=== PATIENT | male | born 1950 | race Caucasian/White ===

== ENCOUNTER 2023-04-28 09:43 | Outpatient (AMB) | payer OTHER, SELFPAY ==
--- NOTE | 2023-04-28 10:42 | A.OFFVIS_ITS ---
Intake Intake Visit Reasons: BPH w lower urinary tract symp/Incontinence Intake Note: New Patient presents for initial visit for BPH/Incontinence Urology Medications: none Blood Thinner: none PVR: 67ml's [facility] Director Required: No Accompanied by: Self / Same As Patient Allergies acetaminophen [Tylenol] Allergy (Unknown, Verified 04/28/23 11:28) Unknown No Known Allergies [No Known Allergies*] Allergy (Unverified 04/28/23 11:28) Hydrocodone-Acetaminophen Allergy (Unknown, Uncoded 04/28/23 11:28) Unknown Medication List - Last Reconciled 04/28/23 [facility] albuterol sulfate 90 mcg/actuation 2 puffs inhalation Q4-6H PRN atorvastatin 80 mg PO DAILY chlorhexidine gluconate 0.12% 15 mL buccal BID clonazepam 1 mg PO BID PRN empagliflozin 25 mg PO DAILY fluoride (sodium) 1.1% 1 appl dental DAILY multivitamin 1 tab PO DAILY omeprazole 20 mg PO DAILY sildenafil 50 mg PO DAILY PRN tadalafil (Cialis) 5 mg PO DAILY 90 days HPI HPI Comments History of Present Illness Details Josh is a very pleasant 72-year-old male patient of Dr. Jeffers. He has a PMH of PTSD, osteoarthritis, obstructive sleep apnea, obesity, hypertension, hyperlipidemia, GERD, drug-induced constipation, alcohol dependence in remission, and impotence. He presents to the office today as a new patient for urinary dribbling, nocturia, and urinary frequency. In discussion with the patient today he reports to be doing and feeling well. He discusses noting lower urinary tract symptoms have st asked he denies arted since starting his diabetic medication. He reports nocturia 2-4 times per night. However, when asked he denies incontinence, hematuria, dysuria, foul smelling urine, changes to urinary stream, flank pain, fever, and or chills. Discussed at length pelvic floor therapy to assist with urinary dribbling. Discussed lifestyle modifications with avoiding liquids 2-4 hours prior to bed as well as bladder triggers/irritants. Discusses importance of compliance with CPAP machine for improvement in lower urinary tract symptoms as well as overall health and well being. Discussed obtaining retroperitoneal ultrasound and PSA for further assessment evaluation. Patient otherwise denies any bothersome issues or concerns at this time. [facility] Medical History Varicocele Other unknown and unspecified cause of morbidity or mortality Post-traumatic stress disorder, unspecified Pedophilia Other acute postprocedural pain Osteoarthritis of knee, unspecified Obstructive sleep apnea (adult) (pediatric) Osteoarthritis of knee Morbid obesity Impotence of organic origin Hypertension Hyperlipidemia, unspecified Gastro-esophageal reflux disease without esophagitis Family history of other specified malignant neoplasm Essential (primary) hypertension Drug induced constipation Type 2 diabetes mellitus Chronic rhinitis BPH w urinary obs/LUTS Other and unspecified alcohol dependence, in remission Review of Systems Eyes Reports no additional complaints ENT Reports no additional complaints Card Reports as per [facility] Resp Reports as per [facility] GI Reports as per [facility] Reports as per [facility] Musc Reports as per [facility] Neuro Reports no additional complaints Psych Reports as per [facility] Endo Reports as per [facility] Jan/Lymph Reports no additional complaints Aller/Immun Reports no additional complaints Physical Exam Const General: cooperative, healthy appearing, comfortable, no acute distress, well developed, alert and awake Nutritional Appearance: overweight Orientation/consciousness: patient oriented x3 Limitations: no limitations HEENT Head: Yes normal to inspection, Yes normocephalic and Yes atraumatic Ears: hearing grossly normal bilaterally Eyes General: appearance normal, both eyes and all related structures Neck Neck: Yes normal visual inspection and Yes trachea midline Chest Chest palpation & inspection: normal inspection of the chest Resp Effort & Inspection: normal respiratory effort and able to speak in complete sentences Cardio Rate: regular rate GI Inspection: Yes normal to inspection General: Yes no CVA tenderness Back/Spine/Pelvis Back: no CVA tenderness Skin General skin exam: no rashes or lesions noted Neuro General: patient oriented x3 Extrem General: Yes normal to inspection Psych Appearance: grossly normal and well kempt Mental Status: mental status grossly normal Speech and movement: Normal speech and movement present and Clear speech present Affect: normal affect Attitude: cooperative Thought process: Normal thought process present Thought content: Normal thought content present Insight: Fair insight present (Psych) Judgement: Fair judgement present (Psych) Office Procedures Post Void Residual Post Residual Void Post Void Residual (PVR): [id number] Void Residual by ultrasound Results AMB Urinalysis, Automated UA Leukoctes 0 Jameel/uL Last Edit by Servando Biswas on 04/28/23 11:01 UA Nitrite Last Edit by Servando Biswas on 04/28/23 11:01 UA Urobilinogen 0.2 mg/dL Last Edit by Servando Castroguille on 04/28/23 11:01 UA Protein 0 mg/dL Last Edit by Servando Castroguille on 04/28/23 11:01 UA pH 6.0 Last Edit by Servando Castroguille on 04/28/23 11:01 UA Blood 0 Jakob/uL Last Edit by Servando Castroguille on 04/28/23 11:01 UA Specific [place] 1.015 Last Edit by Servando Castroguille on 04/28/23 11:01 UA Ketone Negative Last Edit by Servando Castroguille on 04/28/23 11:01 UA Bilirubin 0 mg/dL Last Edit by Servando Castroguille on 04/28/23 11:01 UA Glucose 1000 mg/dL Last Edit by Servando Castroguille on 04/28/23 11:01 Results Reviewed Results Reviewed: Laboratory Last Values Urine pH (Auto) 6.0 04/28/23 10:45 Specific [place] (Auto) 1.015 04/28/23 10:45 Urine Protein (Auto) 0 mg/dL 04/28/23 10:45 Glucose (UA)(Auto) 1000 mg/dL 04/28/23 10:45 Urine Ketones (Auto) Negative 04/28/23 10:45 Urine Blood (Auto) 0 Jakob/uL 04/28/23 10:45 Urine Bilirubin (Auto) 0 mg/dL 04/28/23 10:45 Urine Urobilinogen (Auto) 0.2 mg/dL 04/28/23 10:45 Leukocyte Esterase (Auto) 0 Jameel/uL 04/28/23 10:45 Assessment & Plan Assessment & Plan (1) Lower urinary tract symptoms: Code(s): R39.9 - Unspecified symptoms and signs involving the genitourinary system (2) Urinary dribbling: Code(s): N39.43 - Post-void dribbling (3) Urinary frequency: Code(s): R35.0 - Frequency of micturition (4) Nocturia: Code(s): R35.1 - Nocturia Plan In office urinalysis results reviewed with the patient today PVR 62 mL Will obtain retroperitoneal ultrasound for further assessment evaluation Will obtain PSA for further assessment and evaluation Discussed at length importance of managing diabetes for improvement in lower urinary tract symptoms as well as overall health an well being. Discussed limiting fluids 2-4 hours prior to bed to assist with decreasing episodes of nocturia Discussed pelvic floor exercises for men to assist with urinary dribbling. Discussed bladder triggers/irritants. Start 5mg Cialis daily as discussed and prescribed. Follow-up in 6-8 weeks with imaging and labs to be completed prior; or sooner with any issues, concerns, and or questions. Orders: Orders AMB Urinalysis Automated Today Z13.9 - Encounter for screening, unspecified AMB Post Void Residual by ultrasound Today Z13.9 - Encounter for screening, unspecified PSA,Total (Free>4and<10) Today E11.69 - Type 2 diabetes mellitus with other specified complication, N52.1 - Erectile dysfunction due to diseases classified elsewhere US retroperitoneal comp Today N39.43 - Post-void dribbling, R35.0 - Frequency of micturition, R35.1 - Nocturia, R39.9 - Unspecified symptoms and signs involving the genitourinary system Medications: New tadalafil (Cialis) [facility] [id number] [facility] Group DR33 5 mg PO DAILY 90 tabs 0RF 90 days Patient Instructions: The patient had an opportunity to ask questions regarding the treatment plan. All questions were answered. Physical exam, labs, and imaging were discussed and reviewed in detail. As well as risks, benefits, and discussion of treatment c hoices. No major barriers to understanding were identified. The patient expressed understanding and agreement with the above treatment plan. The patient was made aware they should contact our office by phone for worsening of their current condition, the appearance of new symptoms, or with any questions or concerns. Compliance is encouraged with any medications and follow up testing that is ordered. It is a privilege to be allowed the opportunity to participate in? your urological care.? Again, if you have any questions or concerns If you have any questions or concerns please do not hesitate to contact me. The office is [phone]. This note is constructed using voice recognition software. While every effort has been made to ensure accuracy copy reader errors may have been included. Yours sincerely, AL Maxwell Coding Level of Care Code New Pt Level 4 (33280) Diagnoses Lower urinary tract symptoms R39.9 Urinary dribbling N39.43 Urinary frequency R35.0 Nocturia R35.1 CPT Codes Post Residual Void - PVR CPT Code: 46541-[id number] Void Residual by ultrasound ([id number])
== END 2023-04-28 11:24 | disposition home or self-care (01) ==
PROVIDERS: PCP Internal Medicine; Visit Provider Nurse Practitioner Family
DX: R39.9 Unspecified symptoms and signs involving the genitourinary system (principal); N39.43 Post-void dribbling; R35.0 Frequency of micturition; R35.1 Nocturia; Z13.9 Encounter for screening, unspecified
CPT/HCPCS: 99204

== ENCOUNTER → 2023-04-28 09:43 | Outpatient (BNVA) | payer OTHER, SELFPAY | PROVIDERS: PCP Internal Medicine; Visit Provider Nurse Practitioner Family | DX: N40.1 Benign prostatic hyperplasia with lower urinary tract symptoms (principal); N13.8 Other obstructive and reflux uropathy; N39.43 Post-void dribbling; R35.1 Nocturia; R35.0 Frequency of micturition | CPT/HCPCS: 51798; 81003 ==